=== PATIENT | female | born 1995 | race Caucasian/White ===

== ENCOUNTER 2024-06-20 10:55 | Emergency (ER) | payer OTHER ==
[2024-06-20 11:25] VITALS: RESP 18; TEMP 98.2
[2024-06-20 11:36] LABS: Absolute Neutrophil Ct (ANC) 4.29 x10^3/uL (1.56-6.13); BASOPHIL % 0.5 % (0.1-1.2); Basophil (Absolute #) 0.03 x10^3/uL (0.01-0.08); Eosinophil % 0.2 % (0.7-5.8); Eosinophil (Absolute #) 0.01 x10^3/uL (0.04-0.36); Hematocrit 35.5 % (34.1-44.9); Hemoglobin 12.3 g/dL (11.2-15.7); IMMATURE GRAN # 0.02 x10^3u/L (0.001-0.031); IMMATURE GRAN % 0.4 % (0.001-0.429); Lymphocyte (Absolute #) 0.53 x10^3/uL (1.18-3.74); Lymphocytes % 9.5 % (19.3-51.7); Mean Cell Volume 90.3 fL (79.4-94.8); Mean Corpuscular Hemoglobin 31.3 pg (25.6-32.2); Mean Corpuscular Hgb Concent. 34.6 g/dL (32.2-35.5); Mean Platelet Volume 9.1 fL (9.4-12.3); Monocyte (Absolute #) 0.71 x10^3/uL (0.24-0.86); Monocytes % 12.7 % (4.7-12.5); Neutrophil % 76.7 % (34.0-71.1); Platelet Count 194 x10^3/uL (182-369); Red Blood Count 3.93 x10^6/uL (3.93-5.22); Red Cell Distribution Width 11.3 % (11.7-14.4); White Blood Count 5.6 x10^3/uL (3.98-10.04)
--- NOTE | 2024-06-20 11:45 | ERPHSYRPT ---
- History of Present Illness Time Seen by Provider: 06/20/24 11:43 Source: patient, family Exam Limitations: no limitations Patient Subjective Stated Complaint: Pt. c/o cough, congestion, ear pain, headache, nasal drainage x 2-3 weeks. Triage Nursing Assessment: Pt. ambulated to room unassisted, a&ox3, skin p/w/d, c/o cough, head congestion, nasal drainage causing N/V, headache x 2-3 weeks. Was taking Nyquil at home for s/sx prior to findout she is . Stopped taking the nyquil and s/sx worsened. Physician History: Pt. c/o cough, congestion, ear pain, headache, nasal drainage x 2-3 weeks. c/o cough, head congestion, nasal drainage causing N/V, headache x 2-3 weeks. Was taking Nyquil at home for s/sx prior to findout she is . Stopped taking the nyquil and s/sx worsened. Timing/Duration: week(s) (2-3 weeks) Severity: mild Associated Symptoms: nausea, vomiting, cough, headaches, malaise, No chest pain, No fever, No loss of appetite, No syncope, No seizure Allergies/Adverse Reactions: No Known Drug Allergies Allergy (Verified 06/20/24 11:29) Hx Tetanus, Diphtheria Vaccination/Date Given: Yes Hx Influenza Vaccination/Date Given: Yes Hx Pneumococcal Vaccination/Date Given: Yes Immunizations Up to Date: Yes Travel Risk - International Travel Have you traveled outside of the country in past 3 weeks: No - Emerging Infectious Disease Are you exhibiting symptoms associated with any current EIDs: Yes Symptoms: Cough: New Onset, Fever, Headaches/Body Aches/, Vomitting - Review of Systems Constitutional: No Fever, No Chills Eyes: No Symptoms Ears, Nose, & Throat: Ear Pain, Sinus Drainage Respiratory: Cough, No Dyspnea Cardiac: No Chest Pain, No Edema, No Syncope Abdominal/Gastrointestinal: No Abdominal Pain, No Nausea, No Vomiting, No Diarrhea Genitourinary Symptoms: No Dysuria Musculoskeletal: No Back Pain, No Neck Pain Skin: No Rash Neurological: No Dizziness, No Focal Weakness, No Sensory Changes Psychological: No Symptoms Endocrine: No Symptoms All Other Systems: Reviewed and Negative - Female History Hx Last Menstrual Period: 05/21/2024 Hx Now: Yes Gestational Age: 3 - Social History Smoking Status: Never smoker Exposure to second hand smoke: No Drug Use: none - Social Determinants of Health Will the patient participate in the screening: Yes Do you worry about a steady place to live?: No Do you have any problems with any of the following?: No known problems In the past 12 months,have you had to go without utilities?: No Transportation Issues: No Has anyone in your support network made you feel unsafe?: No Have you or anyone in your house had to go without enough: No - Nursing Vital Signs Nursing Vital Signs: Initial Vital Signs Temperature 98.2 F 06/20/24 11:02 Pulse Rate 94 H 06/20/24 11:02 Respiratory Rate 18 06/20/24 11:02 Blood Pressure 164/88 06/20/24 11:02 O2 Sat by Pulse Oximetry 100 06/20/24 11:02 Pain Scale Pain Intensity 6 - Physical Exam General Appearance: no apparent distress, alert Eye Exam: PERRL/EOMI, eyes nml inspection Ears, Nose, Throat Exam: normal ENT inspection, TMs normal, pharynx normal, moist mucous membranes Neck Exam: normal inspection, non-tender, supple, full range of motion Respiratory Exam: normal breath sounds, lungs clear, No respiratory distress Cardiovascular Exam: regular rate/rhythm, normal heart sounds, normal peripheral pulses Gastrointestinal/Abdomen Exam: soft, normal bowel sounds, No tenderness, No mass Back Exam: normal inspection, normal range of motion, No CVA tenderness, No vertebral tenderness Extremity Exam: normal inspection, normal range of motion, pelvis stable Neurologic Exam: alert, oriented x 3, cooperative, normal mood/affect, nml cerebellar function, nml station & gait, sensation nml, No motor deficits Skin Exam: normal color, warm, dry, No rash Lymphatic Exam: No adenopathy SpO2 Interpretation: normal SpO2: 98 O2 Delivery: Room Air Ordered Tests: Active Orders 24 hr Category Date Time Status CBC W DIFF Stat Lab 06/20/24 11:35 Completed CMP Routine Lab 06/20/24 11:35 Completed CULTURE,URINE Stat Lab 06/20/24 11:27 Received HCG QUALITATIVE, SERUM Stat Lab 06/20/24 11:35 Completed UA W/RFX UR CULTURE Stat Lab 06/20/24 11:27 Completed Medication Summary Discontinued Medications Generic Name Dose Route Start Last Admin Trade Name Freq PRN Reason Stop Dose Admin Ceftriaxone Sodium 1,000 mg 06/20/24 12:35 Ceftriaxone Sodium 1000 Mg Inj Vial IM 06/20/24 12:36 STAT ONE Lab/Rad Data: Laboratory Result Diagrams 06/20/24 11:35 06/20/24 11:35 Laboratory Results 06/20/24 06/20/24 06/20/24 Range/Units Unknown 11:35 11:35 WBC (3.98-10.04) x10^3/uL RBC (3.93-5.22) x10^6/uL Hgb (11.2-15.7) g/dL Hct (34.1-44.9) % MCV (79.4-94.8) fL MCH (25.6-32.2) pg MCHC (32.2-35.5) g/dL RDW (11.7-14.4) % Plt Count (182-369) x10^3/uL MPV (9.4-12.3) fL Gran % (34.0-71.1) % Immature Gran % (Auto) (0.001-0.429) % Nucleat RBC Rel Count (0.00-0.2) % Eos # (Auto) (0.04-0.36) x10^3/uL Immature Gran # (Auto) (0.001-0.031) x10^3u/L Absolute Lymphs (auto) (1.18-3.74) x10^3/uL Absolute Monos (auto) (0.24-0.86) x10^3/uL Absolute Nucleated RBC (0.00-0.012) x10^3u/L Lymphocytes % (19.3-51.7) % Monocytes % (4.7-12.5) % Eosinophils % (0.7-5.8) % Basophils % (0.1-1.2) % Absolute Granulocytes (1.56-6.13) x10^3/uL Basophils # (0.01-0.08) x10^3/uL Sodium (135-145) mmol/L Potassium (3.5-5.1) mmol/L Chloride (98-107) mmol/L Carbon Dioxide (22-30) mmol/L Anion Gap (5-15) MEQ/L BUN (7-17) mg/dL Creatinine (0.52-1.04) mg/dL Estimated GFR ML/MIN Glucose (74-106) mg/dL Calcium (8.4-10.2) mg/dL Total Bilirubin (0.2-1.3) mg/dL AST (14-36) U/L ALT (0-35) U/L Alkaline Phosphatase (38-126) U/L Serum Total Protein (6.3-8.2) g/dL Albumin (3.5-5.0) g/dL Serum HCG, Qual POSITIVE (NEGATIVE) Urine Color (Yellow) Urine Appearance (Clear) Urine pH (4.6-8.0) Ur Specific [place] (1.005-1.030) Urine Protein (Negative) Urine Glucose (UA) (Negative) mg/dL Urine Ketones (Negative) Urine Blood (Negative) Urine Nitrite (Negative) Urine Bilirubin (Negative) Urine Urobilinogen (0.2) mg/dL Ur Leukocyte Esterase (Negative) U Hyaline Cast (Auto) (0-2) /LPF Urine Microscopic RBC (0-5) /HPF Urine Microscopic WBC (0-5) /HPF Ur Epithelial Cells (None Seen) /HPF Urine Bacteria (None Seen) /HPF Urine Culture Reflexed (NO) Influenza Type A Ag NEGATIVE (NEGATIVE) Influenza Type B Ag NEGATIVE (NEGATIVE) RSV (PCR) NEGATIVE (NEGATIVE) SARS-CoV-2 (PCR) POSITIVE A (NEGATIVE) Group A Strep Antibody NOT DETECTED (NEGATIVE) Slides for Path Review 06/20/24 06/20/24 06/20/24 Range/Units 11:35 11:35 11:27 WBC 5.6 (3.98-10.04) x10^3/uL RBC 3.93 (3.93-5.22) x10^6/uL Hgb 12.3 (11.2-15.7) g/dL Hct 35.5 (34.1-44.9) % MCV 90.3 (79.4-94.8) fL MCH 31.3 (25.6-32.2) pg MCHC 34.6 (32.2-35.5) g/dL RDW 11.3 L (11.7-14.4) % Plt Count 194 (182-369) x10^3/uL MPV 9.1 L (9.4-12.3) fL Gran % 76.7 H (34.0-71.1) % Immature Gran % (Auto) 0.4 (0.001-0.429) % Nucleat RBC Rel Count 0.0 (0.00-0.2) % Eos # (Auto) 0.01 L (0.04-0.36) x10^3/uL Immature Gran # (Auto) 0.02 (0.001-0.031) x10^3u/L Absolute Lymphs (auto) 0.53 L (1.18-3.74) x10^3/uL Absolute Monos (auto) 0.71 (0.24-0.86) x10^3/uL Absolute Nucleated RBC 0.00 (0.00-0.012) x10^3u/L Lymphocytes % 9.5 L (19.3-51.7) % Monocytes % 12.7 H (4.7-12.5) % Eosinophils % 0.2 L (0.7-5.8) % Basophils % 0.5 (0.1-1.2) % Absolute Granulocytes 4.29 (1.56-6.13) x10^3/uL Basophils # 0.03 (0.01-0.08) x10^3/uL Sodium 136 (135-145) mmol/L Potassium 3.4 L (3.5-5.1) mmol/L Chloride 102 (98-107) mmol/L Carbon Dioxide 23 (22-30) mmol/L Anion Gap 14.6 (5-15) MEQ/L BUN 5 L (7-17) mg/dL Creatinine 0.47 L (0.52-1.04) mg/dL Estimated GFR 131.3 ML/MIN Glucose 99 (74-106) mg/dL Calcium 9.3 (8.4-10.2) mg/dL Total Bilirubin 0.60 (0.2-1.3) mg/dL AST 25 (14-36) U/L ALT 22 (0-35) U/L Alkaline Phosphatase 65 (38-126) U/L Serum Total Protein 7.9 (6.3-8.2) g/dL Albumin 4.6 (3.5-5.0) g/dL Serum HCG, Qual (NEGATIVE) Urine Color Yellow (Yellow) Urine Appearance Clear (Clear) Urine pH 6.0 (4.6-8.0) Ur Specific [place] 1.020 (1.005-1.030) Urine Protein Trace A (Negative) Urine Glucose (UA) Negative (Negative) mg/dL Urine Ketones Negative (Negative) Urine Blood Negative (Negative) Urine Nitrite Negative (Negative) Urine Bilirubin Negative (Negative) Urine Urobilinogen 1.0 A (0.2) mg/dL Ur Leukocyte Esterase Trace A (Negative) U Hyaline Cast (Auto) NONE SEEN (0-2) /LPF Urine Microscopic RBC 3-5 (0-5) /HPF Urine Microscopic WBC 11-20 A (0-5) /HPF Ur Epithelial Cells Rare (None Seen) /HPF Urine Bacteria Many A (None Seen) /HPF Urine Culture Reflexed YES (NO) Influenza Type A Ag (NEGATIVE) Influenza Type B Ag (NEGATIVE) RSV (PCR) (NEGATIVE) SARS-CoV-2 (PCR) (NEGATIVE) Group A Strep Antibody (NEGATIVE) Slides for Path Review YES - Progress Progress: unchanged Counseled pt/family regarding: lab results, diagnosis, need for follow-up Medical Desision Making - Independent Historian Additional History obtained from: Spouse, Family - Diagnostic Testing Diagnostic test were ordered, analyzed, and reviewed by me: Yes - Risk of complications Low Risk: Low risk of morbidity from additional dx testing or treatment - Departure Departure Disposition: Home Clinical Impression: COVID-19 UTI (urinary tract infection) Qualifiers: Urinary tract infection type: acute cystitis Hematuria presence: without hematuria Qualified Code(s): N30.00 - Acute cystitis without hematuria Qualifiers: Weeks of gestation: less than 8 weeks Qualified Code(s): Z3A.01 - Less than 8 weeks gestation of Condition: Stable Critical Care Time: No Referrals: DOCTOR,NO FAMILY [Primary Care Provider] - Follow up/PCP as directed Instructions: COVID-19 ED, COVID-19 and ED, Urinary Tract Infection, Adult ED Additional Instructions: Discharge/Care Plan SABRINA DAMON was seen on 06/20/24 in the Emergency Room. The patient was counseled regarding Diagnosis,Lab results, Imaging studies, need for follow up and when to return to the Emergency Room. Prescriptions given: Discharge Note I have spoken with the patient and/or caregivers. I have explained the patient's condition, diagnosis and treatment plan based on the information available to me at this time. I have answered the patient's and/or caregiver's questions and addressed any concerns. The patient and/or caregivers have as good understanding of the patient's diagnosis, condition and treatment plan as can be expected at this point. The vital signs have been stable. The patient's condition is stable and appropriate for discharge from the emergency department. The patient will pursue further outpatient evaluation with the primary care physician or other designated or consulting physician as outlined in the discharge instructions. The patient and/or caregivers are agreeable to this plan of care and follow-up instructions have been explained in detail. The patient and/or caregivers have received these instruction. The patient/and or caregivers are aware that any significant change in condition or worsening of symptoms should prompt an immediate return to this or the closest emergency department or call 911. SABRINA DAMON was seen on 06/20/24 n the Emergency Room. At that time you were tr eated for an emergent condition, during your visit Laboratory, Radiology and/or other procedures may have been ordered. It is very important that you follow-up with your Primary Care Physician NO FAMILY DOCTOR within the next 24-48 hours to review your Emergency Room visit and the final results of testing that was ordered. Some test results such as Urine Cultures, Blood Cultures, and other cultures if ordered will not be finalized for 24-48 hours. If you do not have a Primary Care Provider please call the medical records department at [phone] ext [phone] to obtain a copy of your results or you may sign into our patient portal to obtain these results by visiting us @ [email or web address] and completing the following steps: 1. Click on the Patient Portal link 2. Click the Patient Self Enrollment Link to complete the enrollment form and entering your 3. Once the enrollment form is completed you will receive an email with a temporary ID and password at the email address you provided. 4. Next choose a user name and password. Your user name must be at least 4 characters long and your password must be at least 4 characters long. 5. Choose a security question from the list and provide your answer to the question. If you already have signed into the Health Portal you may access your Health Care Information 24/02 by the following steps: 1. Login to our website @ [email or web address] 2. Enter your original user name and password. FAQS The [facility] Health Portal is an online tool that contains your Lab Results, Radiology Reports, Visit History, Discharge Instructions and Health Summary Lab and Radiology Results will not be available for 72 hours on the portal. The Portal is a secure site, passwords are encryted and URLs are re-written so they cannot be copied and pasted. You and authorized family members are the only ones who can access your Portal. Also there is a timeout feature that protects your information if you leave the Portal page open. If you have technical difficulty please use the Contact Us link on the page this will allow you to submit any questions you have regarding the Portal or you may contact the Medical Record Department at [phone]. Prescriptions: Amoxicillin 500 mg Cap [Amoxil 500 mg] 500 mg PO TID #30 cap Ondansetron ODT 4 MG [Zofran Odt 4 mg] 4 mg PO Q6H PRN PRN #20 tablet PRN Reason: Nausea
[2024-06-20 11:48] LABS: Appearance Clear (Clear); Bacteria Many /HPF (None Seen); Bilirubin Negative (Negative); Blood Negative (Negative); Epithelial Cells Rare /HPF (None Seen); Glucose, Urine Negative (Negative); Hyaline Casts NONE SEEN /LPF (0-2); Ketones Negative (Negative); Leukocyte Esterase Trace (Negative); Nitrite Negative (Negative); Protein,Urine Dip Trace (Negative)
[2024-06-20 11:54] LABS: ALBUMIN 4.6 g/dL (3.5-5.0); ANION GAP 14.6 MEQ/L (5-15); BILIRUBIN,TOTAL 0.6 mg/dL (0.2-1.3); Calcium 9.3 mg/dL (8.4-10.2); Creatinine 1 0.47 mg/dL (0.52-1.04); EST GLOMERULAR FILTRATION RATE 131.3 ML/MIN; Potassium 3.4 mmol/L (3.5-5.1); Total Protein 7.9 g/dL (6.3-8.2)
[2024-06-20 12:08] LABS: HCG SERUM TEST POSITIVE (NEGATIVE)
[2024-06-20 12:33] LABS: Slide Review 1 YES
[2024-06-20 12:35] LABS: INFLUENZA A NEGATIVE (NEGATIVE); INFLUENZA B NEGATIVE (NEGATIVE); RESPIRATORY SYNCTIAL VIRUS NEGATIVE (NEGATIVE)
[2024-06-20 12:44] LABS: SARS-CoV-2 Xpert Express POSITIVE (NEGATIVE)
[2024-06-20] MEDS ORDERED: Rocephin 1000 MG INJ ONE (12:55)
[2024-06-20] MEDS ORDERED: XYLOCAINE 2% HCL 20 ML MDV ONE (12:56)
[2024-06-20] MEDS ORDERED: XYLOCAINE 1% HCL 20 ML MDV ONE (12:57)
[2024-06-20] MEDS: Rocephin 1000 MG INJ IM ONE (13:00)
[2024-06-20 13:10] VITALS: BP 96/83; PULSE 70; O2SAT 97
[2024-06-20] MEDS: XYLOCAINE 1% HCL 20 ML MDV IJ ONE (13:25)
== END 2024-06-20 13:27 | disposition home or self-care (01) ==
LOC: ED 10:55
DX: O98.511 Other viral diseases complicating pregnancy, first trimester (principal); U07.1 COVID-19; O23.41 Unspecified infection of urinary tract in pregnancy, first trimester; N39.0 Urinary tract infection, site not specified
CPT/HCPCS: 0241U; 36415; 80053; 81001; 84703; 85025; 87086; 87651; 96372; 99283; J0696

== ENCOUNTER 2024-07-12 05:33 | Emergency (ER) | payer OTHER ==
[2024-07-12 05:51] VITALS: RESP 18; TEMP 96.9
[2024-07-12] MEDS ORDERED: Sodium Chloride 0.9% 1000 ML 1,000 ML ONE ×2 (06:37→08:18)
[2024-07-12] MEDS ORDERED: Zofran 4 MG/2 ML VIAL ONE (06:37)
[2024-07-12 06:38] LABS: Absolute Neutrophil Ct (ANC) 6.63 x10^3/uL (1.56-6.13); BASOPHIL % 0.3 % (0.1-1.2); Basophil (Absolute #) 0.03 x10^3/uL (0.01-0.08); Eosinophil % 0.9 % (0.7-5.8); Eosinophil (Absolute #) 0.08 x10^3/uL (0.04-0.36); Hematocrit 35.2 % (34.1-44.9); Hemoglobin 12.5 g/dL (11.2-15.7); IMMATURE GRAN # 0.03 x10^3u/L (0.001-0.031); IMMATURE GRAN % 0.3 % (0.001-0.429); Lymphocyte (Absolute #) 1.87 x10^3/uL (1.18-3.74); Lymphocytes % 20.6 % (19.3-51.7); Mean Cell Volume 89.1 fL (79.4-94.8); Mean Corpuscular Hemoglobin 31.6 pg (25.6-32.2); Mean Corpuscular Hgb Concent. 35.5 g/dL (32.2-35.5); Mean Platelet Volume 9.5 fL (9.4-12.3); Monocyte (Absolute #) 0.45 x10^3/uL (0.24-0.86); Neutrophil % 72.9 % (34.0-71.1); Platelet Count 237 x10^3/uL (182-369); Red Blood Count 3.95 x10^6/uL (3.93-5.22); Red Cell Distribution Width 11.9 % (11.7-14.4); White Blood Count 9.1 x10^3/uL (3.98-10.04)
[2024-07-12] MEDS: Sodium Chloride 0.9% 1000 ML 1,000 ML IV STA ×2 (06:39→08:18)
[2024-07-12] MEDS: Zofran 4 MG/2 ML VIAL IV ONE (06:39)
--- NOTE | 2024-07-12 06:41 | ERPHSYRPT ---
- History of Present Illness Source: patient Exam Limitations: no limitations Patient Subjective Stated Complaint: pt states that she has vomiting since yesterday. pt states that she is 7 weeks Triage Nursing Assessment: pt ambulated into the er; pt is axo x4; c/o vomiting; pt states 5/10 pain to abd; c/o N/V/D; abd is soft, flat, non tender; hyperactive bowel sounds in all quads; mucus membranes pink and moist; skin PDW; no respiratory distress present; vitals wnl Timing/Duration: yesterday Severity: moderate Modifying Factors: Improves With: nothing Associated Symptoms: nausea, vomiting, abdominal pain, cough, loss of appetite, No shortness of breath, No heartburn, No diaphoresis Hx Tetanus, Diphtheria Vaccination/Date Given: Yes Hx Influenza Vaccination/Date Given: Yes Hx Pneumococcal Vaccination/Date Given: Yes Immunizations Up to Date: No <JIGNA CAMPBELL - Last Filed: 07/12/24 06:38> <WALE KNIGHT - Last Filed: 07/12/24 09:00> - History of Present Illness Time Seen by Provider: 07/12/24 06:39 Physician History: The patient, currently seven weeks , presents with nausea and vomiting. They have been experiencing severe nausea and vomiting, unable to retain any food since last night, with episodes occurring every two hours. The symptoms wor sened significantly starting yesterday at 8 AM. The vomitus consists mainly of mucus and phlegm. No fever is present, but there is a cough and congestion. The last meal was plain noodles at around 6 PM, and vomiting began after a nap at 8 PM. Currently seven weeks , they experienced some dark bleeding two days ago, which occurred only once. This is their fourth , with a history of a possible chemical a month prior, though it was not thoroughly confirmed. They have not yet seen their OB but have an appointment scheduled in two weeks. They have a history of COVID-19 and a urinary tract infection about four weeks ago, which had subsided by last weekend. However, the symptoms have returned, with nausea and vomiting being prominent. (JIGNA CAMPBELL) Allergies/Adverse Reactions: No Known Drug Allergies Allergy (Verified 07/12/24 05:38) Home Medications: No122/Iron/Folic Acid [ Multi Tablet] 1 each PO HS 12/09/24 [History] Travel Risk - International Travel Have you traveled outside of the country in past 3 weeks: No - Emerging Infectious Disease Are you exhibiting symptoms associated with any current EIDs: Yes Symptoms: Abdominal Pain, Cough: New Onset, Fever, Headaches/Body Aches/, Vomitting <JIGNA CAMPBELL - Last Filed: 07/12/24 06:38> - Review of Systems All Other Systems: Reviewed and Negative <JIGNA CAMPBELL - Last Filed: 07/12/24 06:38> - Past Medical History Pertinent Past Medical History: No - Past Surgical History Past Surgical History: Yes Musculoskeletal: Orthopedic Surgery Other Surgical History: rt hip repair - Female History Hx Last Menstrual Period: 05/21/2024 Hx Now: Yes Gestational Age: 7 weeks - Social History Smoking Status: Never smoker Exposure to second hand smoke: No Drug Use: none - Social Determinants of Health Will the patient participate in the screening: Yes Do you worry about a steady place to live?: No Do you have any problems with any of the following?: No known problems In the past 12 months,have you had to go without utilities?: No Transportation Issues: No Has anyone in your support network made you feel unsafe?: No Have you or anyone in your house had to go without enough: No <JIGNA CAMPBELL - Last Filed: 07/12/24 06:38> - Physical Exam General Appearance: no apparent distress Respiratory Exam: airway intact, No respiratory distress Gastrointestinal/Abdomen Exam: soft, tenderness (mild epigastric), No distention, No mass, No guarding, No rebound Neurologic Exam: alert, oriented x 3, cooperative Skin Exam: normal color, warm, dry, No rash SpO2 Interpretation: normal SpO2: 99 O2 Delivery: Room Air <JIGNA CAMPBELL - Last Filed: 07/12/24 06:38> - Nursing Vital Signs Nursing Vital Signs: Initial Vital Signs Pulse Rate 73 07/12/24 05:40 Blood Pressure 139/87 07/12/24 05:40 O2 Sat by Pulse Oximetry 98 07/12/24 05:40 Pain Scale Pain Intensity 0 - Course Nursing assessment & vital signs reviewed: Yes <JIGNA CAMPBELL - Last Filed: 07/12/24 06:38> Ordered Tests: Active Orders 24 hr Category Date Time Status IV Insertion STAT Care 07/12/24 06:34 Active OB <14 WKS 1ST GESTATION [US] Stat Exams 07/12/24 07:28 Completed CBC W DIFF Stat Lab 07/12/24 06:00 Completed CMP Stat Lab 07/12/24 06:00 Completed CULTURE,URINE Stat Lab 07/12/24 06:35 Received HCG QUALITATIVE, SERUM Stat Lab 07/12/24 06:00 Completed HCG, Quantitative (Inhouse) Stat Lab 07/12/24 06:00 Completed UA W/RFX UR CULTURE Stat Lab 07/12/24 06:35 Completed Medication Summary Generic Name Dose Route Start Last Admin Trade Name Freq PRN Reason Stop Dose Admin Sodium Chloride 1,000 mls @ 999 mls/hr 07/12/24 08:13 07/12/24 08:18 Sodium Chloride 0.9% 1000 Ml IV 07/12/24 09:13 999 mls/hr .Q1H1M STA Administration Discontinued Medications Generic Name Dose Route Start Last Admin Trade Name Freq PRN Reason Stop Dose Admin Diphenhydramine HCl 25 mg 07/12/24 07:28 07/12/24 07:36 Diphenhydramine Hcl 50 Mg/Ml Vial IV 07/12/24 07:29 25 mg STAT ONE Administration Diphenhydramine HCl Confirm 07/12/24 07:33 Diphenhydramine Hcl 50 Mg/Ml Vial Administered 07/12/24 07:34 Dose 50 mg .ROUTE .STK-MED ONE Sodium Chloride 1,000 mls @ 999 mls/hr 07/12/24 06:34 07/12/24 07:45 Sodium Chloride 0.9% 1000 Ml IV 07/12/24 07:34 Infused .Q1H1M STA Infusion Sodium Chloride Confirm 07/12/24 06:37 Sodium Chloride 0.9% 1000 Ml Administered 07/12/24 06:38 Dose 1,000 mls @ ud .ROUTE .STK-MED ONE Sodium Chloride Confirm 07/12/24 08:18 Sodium Chloride 0.9% 1000 Ml Administered 07/12/24 08:19 Dose 1,000 mls @ ud .ROUTE .STK-MED ONE Metoclopramide HCl 10 mg 07/12/24 07:28 07/12/24 07:35 Metoclopramide Hcl 10 Mg/2 Ml Vial IV 07/12/24 07:29 10 mg STAT ONE Administration Metoclopramide HCl Confirm 07/12/24 07:33 Metoclopramide Hcl 10 Mg/2 Ml Vial Administered 07/12/24 07:34 Dose 10 mg .ROUTE .STK-MED ONE Ondansetron HCl 4 mg 07/12/24 06:34 07/12/24 06:39 Ondansetron Hcl 4 Mg/2 Ml Vial IV 07/12/24 06:35 4 mg STAT ONE Administration Ondansetron HCl Confirm 07/12/24 06:37 Ondansetron Hcl 4 Mg/2 Ml Vial Administered 07/12/24 06:38 Dose 4 mg .ROUTE .STK-MED ONE Lab/Rad Data: Laboratory Result Diagrams 07/12/24 06:00 07/12/24 06:00 Laboratory Results 07/12/24 07/12/24 07/12/24 Range/Units 06:43 06:35 06:00 WBC (3.98-10.04) x10^3/uL RBC (3.93-5.22) x10^6/uL Hgb (11.2-15.7) g/dL Hct (34.1-44.9) % MCV (79.4-94.8) fL MCH (25.6-32.2) pg MCHC (32.2-35.5) g/dL RDW (11.7-14.4) % Plt Count (182-369) x10^3/uL MPV (9.4-12.3) fL Gran % (34.0-71.1) % Immature Gran % (Auto) (0.001-0.429) % Nucleat RBC Rel Count (0.00-0.2) % Eos # (Auto) (0.04-0.36) x10^3/uL Immature Gran # (Auto) (0.001-0.031) x10^3u/L Absolute Lymphs (auto) (1.18-3.74) x10^3/uL Absolute Monos (auto) (0.24-0.86) x10^3/uL Absolute Nucleated RBC (0.00-0.012) x10^3u/L Lymphocytes % (19.3-51.7) % Monocytes % (4.7-12.5) % Eosinophils % (0.7-5.8) % Basophils % (0.1-1.2) % Absolute Granulocytes (1.56-6.13) x10^3/uL Basophils # (0.01-0.08) x10^3/uL Sodium (135-145) mmol/L Potassium (3.5-5.1) mmol/L Chloride (98-107) mmol/L Carbon Dioxide (22-30) mmol/L Anion Gap (5-15) MEQ/L BUN (7-17) mg/dL Creatinine (0.52-1.04) mg/dL Estimated GFR ML/MIN Glucose (74-106) mg/dL Calcium (8.4-10.2) mg/dL Total Bilirubin (0.2-1.3) mg/dL AST (14-36) U/L ALT (0-35) U/L Alkaline Phosphatase (38-126) U/L Serum Total Protein (6.3-8.2) g/dL Albumin (3.5-5.0) g/dL Serum HCG, Qual (NEGATIVE) Beta HCG, Quant 96315 mIU/ml Urine Color Dark Yellow A (Yellow) Urine Appearance Cloudy A (Clear) Urine pH 6.0 (4.6-8.0) Ur Specific [place] 1.020 (1.005-1.030) Urine Protein Trace A (Negative) Urine Glucose (UA) Negative (Negative) mg/dL Urine Ketones Negative (Negative) Urine Blood Negative (Negative) Urine Nitrite Negative (Negative) Urine Bilirubin Negative (Negative) Urine Urobilinogen 1.0 A (0.2) mg/dL Ur Leukocyte Esterase Trace A (Negative) Urine Microscopic RBC 6-10 A (0-5) /HPF Urine Microscopic WBC 11-20 A (0-5) /HPF Ur Epithelial Cells Few (None Seen) /HPF Urine Bacteria Many A (None Seen) /HPF Urine Mucus Moderate A (NEGATIVE) /HPF Urine Culture Reflexed YES (NO) Influenza Type A Ag NEGATIVE (NEGATIVE) Influenza Type B Ag NEGATIVE (NEGATIVE) RSV (PCR) NEGATIVE (NEGATIVE) SARS-CoV-2 (PCR) NEGATIVE (NEGATIVE) 07/12/24 07/12/24 07/12/24 Range/Units 06:00 06:00 06:00 WBC 9.1 (3.98-10.04) x10^3/uL RBC 3.95 (3.93-5.22) x10^6/uL Hgb 12.5 (11.2-15.7) g/dL Hct 35.2 (34.1-44.9) % MCV 89.1 (79.4-94.8) fL MCH 31.6 (25.6-32.2) pg MCHC 35.5 (32.2-35.5) g/dL RDW 11.9 (11.7-14.4) % Plt Count 237 (182-369) x10^3/uL MPV 9.5 (9.4-12.3) fL Gran % 72.9 H (34.0-71.1) % Immature Gran % (Auto) 0.3 (0.001-0.429) % Nucleat RBC Rel Count 0.0 (0.00-0.2) % Eos # (Auto) 0.08 (0.04-0.36) x10^3/uL Immature Gran # (Auto) 0.03 (0.001-0.031) x10^3u/L Absolute Lymphs (auto) 1.87 (1.18-3.74) x10^3/uL Absolute Monos (auto) 0.45 (0.24-0.86) x10^3/uL Absolute Nucleated RBC 0.00 (0.00-0.012) x10^3u/L Lymphocytes % 20.6 (19.3-51.7) % Monocytes % 5.0 (4.7-12.5) % Eosinophils % 0.9 (0.7-5.8) % Basophils % 0.3 (0.1-1.2) % Absolute Granulocytes 6.63 H (1.56-6.13) x10^3/uL Basophils # 0.03 (0.01-0.08) x10^3/uL Sodium 135 (135-145) mmol/L Potassium 3.4 L (3.5-5.1) mmol/L Chloride 103 (98-107) mmol/L Carbon Dioxide 24 (22-30) mmol/L Anion Gap 11.3 (5-15) MEQ/L BUN 5 L (7-17) mg/dL Creatinine 0.39 L (0.52-1.04) mg/dL Estimated GFR 137.3 ML/MIN Glucose 98 (74-106) mg/dL Calcium 9.7 (8.4-10.2) mg/dL Total Bilirubin 0.80 (0.2-1.3) mg/dL AST 26 (14-36) U/L ALT 18 (0-35) U/L Alkaline Phosphatase 63 (38-126) U/L Serum Total Protein 8.0 (6.3-8.2) g/dL Albumin 4.5 (3.5-5.0) g/dL Serum HCG, Qual POSITIVE (NEGATIVE) Beta HCG, Quant mIU/ml Urine Color (Yellow) Urine Appearance (Clear) Urine pH (4.6-8.0) Ur Specific [place] (1.005-1.030) Urine Protein (Negative) Urine Glucose (UA) (Negative) mg/dL Urine Ketones (Negative) Urine Blood (Negative) Urine Nitrite (Negative) Urine Bilirubin (Negative) Urine Urobilinogen (0.2) mg/dL Ur Leukocyte Esterase (Negative) Urine Microscopic RBC (0-5) /HPF Urine Microscopic WBC (0-5) /HPF Ur Epithelial Cells (None Seen) /HPF Urine Bacteria (None Seen) /HPF Urine Mucus (NEGATIVE) /HPF Urine Culture Reflexed (NO) Influenza Type A Ag (NEGATIVE) Influenza Type B Ag (NEGATIVE) RSV (PCR) (NEGATIVE) SARS-CoV-2 (PCR) (NEGATIVE) <JIGNA CAMPBELL - Last Filed: 07/12/24 06:38> - Progress Progress: improved Counseled pt/family regarding: lab results, diagnosis, need for follow-up, rad results <WALE KNIGHT - Last Filed: 07/12/24 09:00> - Progress Progress Note: Nausea and Vomiting in 7 weeks with severe nausea and vomiting, unable to retain food since last night. Vomiting every two hours since 8 PM, expelling mucus and phlegm. No fever. One-time dark vaginal bleeding two days ago, not concerning. Fourth , recent chemical . Discussed dehydration risks and benefits of IV fluids and antiemetics. Patient consents to treatment. - Order lab work - Administer antiemetic medication - Administer IV fluids (JIGNA CAMPBELL) 07/12/24 08:41 I took over care at 7 am. Patient looks well-hydrated on my exam. Good skin turgor, moist mucous membranes. We did order an ultrasound to evaluate for ectopic or other abnormal . This has returned with a read of 10 weeks 1 day. Patient has a IUP and good heart heart rate. We did order a second liter of fluid out of an abundance of caution. Patient still feeling somewhat nauseous therefore we did give Reglan and Benadryl. Plan for continue close monitoring of the situation, likely discharge home with close OB follow- up. Patient states that she does have an OB ultrasound already scheduled next week in [place]. This is approximately 1 week away. I do feel comfortable with this close outpatient follow-up. She may return here sooner for any new or changing symptoms. 07/12/24 08:59 Beta-hCG has returned at greater than 97,000. Patient has not had any vomiting on my shift. This has been greater than 2 hours of observation time. We will p.o. challenge patient. As long as patient is able to keep oral intake down without vomiting we will most likely send patient home with a prescription for Zofran. Strict return precautions as above. Otherwise normal outpatient follow-up with TELECOM COORDINATOR. (WALE KNIGHT) <JIGNA CAMPBELL - Last Filed: 07/12/24 06:38> - Departure Departure Disposition: Home Critical Care Time: No <WALE KNIGHT - Last Filed: 07/12/24 09:00> - Departure Clinical Impression: Nausea and vomiting during Condition: Stable Referrals: DOCTOR,NO FAMILY [Primary Care Provider] - Follow up/PCP as directed Prescriptions: Ondansetron ODT 4 MG [Zofran Odt 4 mg] 4 mg PO Q6H PRN PRN #10 tablet PRN Reason: Vomiting
[2024-07-12 06:42] LABS: HCG SERUM TEST POSITIVE (NEGATIVE)
[2024-07-12 06:48] LABS: ALBUMIN 4.5 g/dL (3.5-5.0); ANION GAP 11.3 MEQ/L (5-15); BILIRUBIN,TOTAL 0.8 mg/dL (0.2-1.3); Calcium 9.7 mg/dL (8.4-10.2); Creatinine 1 0.39 mg/dL (0.52-1.04); EST GLOMERULAR FILTRATION RATE 137.3 ML/MIN; Potassium 3.4 mmol/L (3.5-5.1)
[2024-07-12 06:49] LABS: Appearance Cloudy (Clear); Bacteria Many /HPF (None Seen); Bilirubin Negative (Negative); Blood Negative (Negative); Epithelial Cells Few /HPF (None Seen); Glucose, Urine Negative (Negative); Ketones Negative (Negative); Leukocyte Esterase Trace (Negative); Nitrite Negative (Negative); Protein,Urine Dip Trace (Negative)
[2024-07-12 07:02] LABS: Mucus Moderate /HPF (NEGATIVE)
[2024-07-12 07:26] LABS: INFLUENZA A NEGATIVE (NEGATIVE); INFLUENZA B NEGATIVE (NEGATIVE); RESPIRATORY SYNCTIAL VIRUS NEGATIVE (NEGATIVE); SARS-CoV-2 Xpert Express NEGATIVE (NEGATIVE)
[2024-07-12] MEDS ORDERED: BENADRYL 50 MG/ML ONE (07:33)
[2024-07-12] MEDS ORDERED: Reglan 10 MG/2 ML ONE (07:33)
[2024-07-12] MEDS: Reglan 10 MG/2 ML IV ONE (07:35)
[2024-07-12] MEDS: BENADRYL 50 MG/ML IV ONE (07:36)
--- NOTE | 2024-07-12 08:38 | XRAY ---
Indication: Neck Coptic . Two-dimensional transabdominal early OB ultrasound performed. Comparison: None Uterus anteverted with single intrauterine gestational sac and single pole. Mean crown-rump length is 3.24 cm corresponding to 10 weeks 1 day. heart rate 176 BPM. No abnormal subchorionic fluid. Left and right ovaries are sonographically unremarkable. No suspicious adnexal mass or free fluid. Impression: Single viable intrauterine measuring 10 weeks 1 day. Expected date confinement is February 06, 2025. No acute findings.
[2024-07-12 08:50] VITALS: O2SAT 99
[2024-07-12 09:27] VITALS: BP 124/56; PULSE 70
== END 2024-07-12 09:35 | disposition home or self-care (01) ==
LOC: ED 05:33
DX: O21.9 Vomiting of pregnancy, unspecified (principal); O23.41 Unspecified infection of urinary tract in pregnancy, first trimester; N39.0 Urinary tract infection, site not specified; Z3A.01 Less than 8 weeks gestation of pregnancy
CPT/HCPCS: 0241U; 36415; 76801; 80053; 81001; 84702; 84703; 85025; 87086; 96360; 96361; 96374; 96375; 99284; J1200; J2405

== ENCOUNTER 2024-11-02 19:18 | Observation (INO) | payer OTHER ==
[2024-11-02 20:27] VITALS: BP 137/73; PULSE 86; RESP 19; TEMP 98.1; O2SAT 97
[2024-11-02 20:38] LABS: Appearance Cloudy (Clear); Bacteria Rare /HPF (None Seen); Bilirubin Negative (Negative); Blood Negative (Negative); Epithelial Cells None Seen /HPF (None Seen); Glucose, Urine Negative (Negative); Hyaline Casts NONE SEEN /LPF (0-2); Ketones Negative (Negative); Leukocyte Esterase Trace (Negative); Nitrite Negative (Negative); Ph 7.5 (4.6-8.0); Protein,Urine Dip Negative (Negative); RBC 0-2 /HPF (0-5); WBC 0-2 /HPF (0-5)
[2024-11-02] MEDS: Lactated Ringers 1,000 ML IV ONE (20:45)
[2024-11-02] MEDS ORDERED: Lactated Ringers 1,000 ML IV ONE (20:45)
[2024-11-02 20:50] LABS: Amphetamine,Urine NEGATIVE (NEGATIVE); Barbiturate,Urine NEGATIVE (NEGATIVE); Benzodiazepine,Urine NEGATIVE (NEGATIVE); Cocaine,Urine NEGATIVE (NEGATIVE); Methadone,Urine NEGATIVE (NEGATIVE); Opiate,Urine NEGATIVE (NEGATIVE); PCP,Urine NEGATIVE (NEGATIVE); THC,Urine NEGATIVE (NEGATIVE)
== END 2024-11-02 22:00 | disposition home or self-care (01) ==
LOC: OB.NST 19:18 → MED SURG 19:38 → OB 19:44
PROVIDERS: ADMIT Family Medicine; ATTEND Obstetrics & Gynecology
DX: Z34.82 Encounter for supervision of other normal pregnancy, second trimester (principal); Z3A.26 26 weeks gestation of pregnancy
CPT/HCPCS: 80307; 81001; G0378; G0379